=== PATIENT | male | born 1930 | race African-American/Black ===

== ENCOUNTER 2017-02-25 13:27 | Observation (INO) | payer MEDICARE, OTHER ==
[~2017-02-25] VITALS: Ht 177.8 cm; Wt 59.0 kg
[~2017-02-25 13:27] MED LIST: NORVASC; TOPAMAX
[2017-02-25 14:55] LABS: CLARITY URINE CLEAR (CLEAR); COLOR URINE YELLOW (YELLOW); GLUCOSE URINE NEGATIVE (NEGATIVE); KETONES URINE NEGATIVE (NEGATIVE); LEUKOCYTE ESTERASE URINE NEGATIVE (NEGATIVE); NITRITE URINE NEGATIVE (NEGATIVE); OCCULT BLOOD URINE NEGATIVE (NEGATIVE); PH URINE 5.5 (4.5-8.0); PROTEIN URINE NEGATIVE (NEGATIVE); SPECIFIC GRAVITY URINE 1.013 (1.005-1.030)
[2017-02-25 15:07] LABS: CHLORIDE 112 mEq/L (98-107)
[2017-02-25 15:12] LABS: CARBON DIOXIDE 25 mEq/L (21-32)
[2017-02-25 15:18] LABS: INR 1.1; PROTHROMBIN TIME 11.3 sec
[2017-02-25 15:19] LABS: BASOPHILS % 0.4 % (0.0-2.0); LYMPHOCYTES % 16.2 % (20.0-50.0); MEAN CORPUSCULAR HEMOGLOBIN 28.4 pg (28.0-32.0); MEAN CORPUSCULAR VOLUME 86.2 fL (80.0-94.0); MEAN PLATELET VOLUME 8.3 fl (7.4-10.4); MONOCYTES % 7.5 % (2.0-8.0); NEUTROPHILS % 71.9 % (40.0-76.0); PLATELET 167 x1000/uL (130-400); RED BLOOD CELL COUNT 2.35 mill/uL (4.7-6.1); RED CELL DISTRIBUTION WIDTH 17.2 % (11.6-14.6)
[2017-02-25 15:22] LABS: HEMOGLOBIN. 6.7 g/dL (14.0-18.0)
[2017-02-25 15:23] LABS: HEMATOCRIT. 20.3 % (42.0-52.0)
[2017-02-25] MEDS ORDERED: SODIUM CHLORIDE 0.9% 1,000 ML IV ONE (15:30)
[2017-02-25 17:04] VITALS: BP 202/94
[2017-02-25] MEDS ORDERED: ACETAMINOPHEN 325MG TABLET PO PRN (17:30)
[2017-02-25] MEDS ORDERED: HYDROCODONE/ACETAMINOPHEN 5/325MG TABLET PO PRN (17:30)
[2017-02-25] MEDS ORDERED: FINA5TAB11 PO (17:35)
[2017-02-25] MEDS ORDERED: FAMO20TA8 PO (17:35)
[2017-02-25] MEDS ORDERED: METO-300 PO (17:35)
[2017-02-25] MEDS: HYDRALAZINE HCL 50MG TABLET PO SCH (17:47)
[2017-02-25 18:47] VITALS: BP 130/68
[2017-02-25 20:00] VITALS: BP 119/56
[2017-02-25] MEDS: METOPROLOL TARTRATE 50MG TABLET PO SCH (21:16)
[2017-02-25 22:55] VITALS: BP 142/93
[2017-02-25 23:10] VITALS: BP 153/99
[2017-02-25 23:10] LABS: TOTAL IRON BINDING CAPACITY 332 ug/dL (250-450)
[2017-02-25 23:48] LABS: VITAMIN B12 SERUM 414 pg/mL (211-911)
[2017-02-25 23:55] VITALS: BP 161/79
[2017-02-26] VITALS (13 sets, daily range): BP systolic 115–188; BP diastolic 68–102
[2017-02-26] MEDS: CLONIDINE 0.1MG TABLET PO PRN ×2 (00:10→06:20)
[2017-02-26 06:59] LABS: FERRITIN 23 ng/mL (22-322)
[2017-02-26] MEDS: METOPROLOL TARTRATE 50MG TABLET PO SCH (08:33)
[2017-02-26] MEDS: HYDRALAZINE HCL 50MG TABLET PO SCH (08:34)
[2017-02-26 08:51] LABS: BASOPHILS % 0.3 % (0.0-2.0); EOSINOPHILS % 4.7 % (0.0-5.0); HEMATOCRIT. 29.2 % (42.0-52.0); HEMOGLOBIN. 9.6 g/dL (14.0-18.0); LYMPHOCYTES % 18.4 % (20.0-50.0); MEAN CORPUSCULAR HEMOGLOBIN 28.3 pg (28.0-32.0); MEAN CORPUSCULAR VOLUME 85.9 fL (80.0-94.0); MEAN PLATELET VOLUME 8.7 fl (7.4-10.4); MONOCYTES % 9.5 % (2.0-8.0); NEUTROPHILS % 67.1 % (40.0-76.0); PLATELET 141 x1000/uL (130-400); RED CELL DISTRIBUTION WIDTH 16.4 % (11.6-14.6)
[2017-02-26] MEDS ORDERED: FAMOTIDINE(NEO) 1MG/ML SUSP PO SCH (09:00)
[2017-02-26] MEDS ORDERED: FINASTERIDE 5MG TABLET PO SCH (09:00)
[2017-02-26] MEDS ORDERED: FAMOTIDINE 20MG TABLET PO SCH (09:00)
[2017-02-26] MEDS ORDERED: MEDICATION NOT ON FORMULARY EA (Metoprolol Succinate 1 TAB) PO SCH (09:00)
[2017-02-26 09:12] LABS: CARBON DIOXIDE 22 mEq/L (21-32); CHLORIDE 114 mEq/L (98-107)
[2017-02-26] MEDS ORDERED: PREDNISONE 20MG TABLET PO SCH (12:45)
== END 2017-02-26 18:00 | disposition home or self-care (01) ==
LOC: ER 14:39 → 8WST 15:50 → INTOOBSV 15:50 → EDBEDREQ 15:53 → ENRESERV 16:06
PROVIDERS: ADMIT Internal Medicine; ATTEND Internal Medicine
DX: D63.1 Anemia in chronic kidney disease (principal); N17.9 Acute kidney failure, unspecified; N18.9 Chronic kidney disease, unspecified; I12.9 Hypertensive chronic kidney disease with stage 1 through stage 4 chronic kidney disease, or unspecified chronic kidney disease; R63.4 Abnormal weight loss; R53.1 Weakness; J44.9 Chronic obstructive pulmonary disease, unspecified; Z87.891 Personal history of nicotine dependence; Z59.0 Homelessness
CPT/HCPCS: 36415; 36430; 71010; 71250; 74176; 80053; 81003; 82270; 82607; 82728; 83540; 83550; 84153; 85025; 85610; 86703; 86850; 86900; 86901; 86920; 93005; 96360; 97162; 99285; G0378; J7030; J7050; P9016